=== PATIENT | male | born 1960 | race Caucasian/White ===

== ENCOUNTER → 2016-05-26 | Outpatient (REF) | payer MEDICARE, OTHER, MEDICAID ==
[~2016-05-26] MED LIST: /LAMO10TA PO; /QUET25TA PO; ABIL10TA PO; ACTO15TA6 PO; ASPI-85 PO; ATOR1TAB19 PO; BISO10TA6 PO; BISO5TAB5 PO; CLOP75TA2 PO; DYAZCA PO; GABA100C PO; GABA400C PO; GLIP5TAB2 PO; GLUC250C5 PO; GLUC5TAB3 PO; INVO100T PO; JANU100T PO; JANU25TA PO; LAMI25TA PO; LIPI10TA PO; LISI2.5T PO; LOSA50TA20 PO; MECL-68 PO; MECL25CH PO; METF-415 PO; MULTTAB4 PO; MYSO50TA PO; OMEG10006 PO; PROZ20CA11 PO; PROZ40CA PO; ROZE8TAB9 PO; SERT-138 PO; SPIRIVA INH; Spiriva Handihaler INH; TRAZ100T2 PO; VIBR100C PO; [UNRECOGNIZED DRUG - CODE] PO; spiriva PO
== END ==
LOC: M LAB REF 14:38
PROVIDERS: ATTEND Psychiatry & Neurology Psychiatry
DX: Z51.81 Encounter for therapeutic drug level monitoring (principal); Z79.899 Other long term (current) drug therapy

== ENCOUNTER → 2016-06-08 | Outpatient (REF) | payer MEDICARE, OTHER, MEDICAID | LOC: M LABNEURO 13:01 | PROVIDERS: ATTEND Psychiatry & Neurology Neurology | DX: G25.0 Essential tremor (principal) ==

== ENCOUNTER → 2016-08-26 | Outpatient (CLI) | payer MEDICARE, MEDICAID ==
[~2016-08-26] MED LIST changes: +E-Z-GAS II EFFERVESCENT PACKET (SODIUM BICARB./CITRIC ACID/SIMETHICONE) As Ordered ONE; +E-Z-HD 98% w/w 340GM SUSP BTL As Ordered ONE; +E-Z-PAQUE 96% w/w SUSP 176GM BTL As Ordered ONE; +ROZE8TAB16 PO; -ROZE8TAB9 PO
--- NOTE | 2016-08-26 15:33 | REP ---
ESOPHAGRAM, SINGLE CONTRAST: The procedure was performed under the direct supervision of Dr. Mazariegos. The images were reviewed with Dr. Mazariegos. A single view PA chest x-ray is submitted as a superintendent pressure film. There is no change compared to a previous chest x-ray performed on 09/28/2014. Liquid barium was administered in the prone oblique positions. The patient has Parkinson's disease and is unable to stand for the exam. During the oral and pharyngeal stages of deglutition there is penetration. Esophageal transport is prompt and efficient and there is no esophagitis, stricture, mucosal ring or hiatal hernia. Gastroesophageal reflux is not demonstrated on this examination. IMPRESSION: There is laryngeal penetration, otherwise, single contrast esophagram within normal limits. 1 minute and 17 seconds of fluoroscopy time was utilized for this procedure. Reviewed by SHLOMO Rodriguez 08/27/2016 04:11 PEdited and Signed by Rajinder Mazariegos MD 08/27/2016 04:51 P
== END ==
LOC: M RAD 09:18
PROVIDERS: ATTEND Psychiatry & Neurology Neurology
DX: R13.10 Dysphagia, unspecified (principal); F43.10 Post-traumatic stress disorder, unspecified; F33.2 Major depressive disorder, recurrent severe without psychotic features

== ENCOUNTER → 2016-10-28 | Outpatient (REF) | payer MEDICARE, MEDICAID ==
[~2016-10-28] MED LIST changes: -E-Z-GAS II EFFERVESCENT PACKET (SODIUM BICARB./CITRIC ACID/SIMETHICONE) As Ordered ONE; -E-Z-HD 98% w/w 340GM SUSP BTL As Ordered ONE; -E-Z-PAQUE 96% w/w SUSP 176GM BTL As Ordered ONE
[2016-10-28 13:28] LABS: MEAN CORPUSCULAR HEMOGLOBIN 31.7 pg (27.0-33.0); MEAN CORPUSCULAR HGB CONC 34.6 g/dl (32.0-36.5); MEAN CORPUSCULAR VOLUME 91.4 fl (80.0-96.0); RED CELL DISTRIBUTION WIDTH 12.6 % (11.5-14.5); WHITE BLOOD COUNT 10.8 K/mm3 (4.0-10.0)
[2016-10-28 16:09] LABS: ALBUMIN 4.1 GM/DL (3.2-5.2); ALBUMIN/GLOBULIN RATIO 1.28 (1.00-1.93); ALKALINE PHOSPHATASE 113 U/L (45-117); ALT/SGPT 19 U/L (12-78); ANION GAP 8 MEQ/L (8-16); AST/SGOT 5 U/L (15-37); BILIRUBIN,TOTAL 0.4 MG/DL (0.2-1.0); BLOOD UREA NITROGEN 12 MG/DL (7-18); CALCIUM LEVEL 9.2 MG/DL (8.5-10.1); CARBON DIOXIDE LEVEL 28 MEQ/L (21-32); CHLORIDE LEVEL 100 MEQ/L (98-107); CREATININE FOR GFR 0.88 MG/DL (0.70-1.30); FREE T4 0.99 NG/DL (0.76-1.46); GLOMERULAR FILTRATION RATE > 60.0 (>56); GLUCOSE, FASTING 368 MG/DL (70-105); SODIUM LEVEL 136 MEQ/L (136-145); TOTAL PROTEIN 7.3 GM/DL (6.4-8.2)
[2016-10-30 00:06] LABS: PHENOBARBITAL (PRIMIDONE) 5 ug/mL (15-40)
== END ==
LOC: M SFHCLERA 10-22 15:30 → M LAB REF 12:51
PROVIDERS: ATTEND Family Medicine
DX: E11.8 Type 2 diabetes mellitus with unspecified complications (principal); G20 Parkinson's disease; F43.10 Post-traumatic stress disorder, unspecified; F33.2 Major depressive disorder, recurrent severe without psychotic features

== ENCOUNTER → 2017-02-04 | Outpatient (REF) | payer MEDICARE, MEDICAID ==
[2017-02-04 18:21] LABS: ANION GAP 8 MEQ/L (8-16); BLOOD UREA NITROGEN 20 MG/DL (7-18); CALCIUM LEVEL 9.2 MG/DL (8.5-10.1); CARBON DIOXIDE LEVEL 28 MEQ/L (21-32); CHLORIDE LEVEL 103 MEQ/L (98-107); CREATININE FOR GFR 0.96 MG/DL (0.70-1.30); GLOMERULAR FILTRATION RATE > 60.0 (>56); SODIUM LEVEL 139 MEQ/L (136-145)
[2017-02-04 18:34] LABS: GLUCOSE, FASTING 408 MG/DL (70-105); POTASSIUM SERUM 5.2 MEQ/L (3.5-5.1)
== END ==
LOC: M SFHCLERA 14:14
PROVIDERS: ATTEND Family Medicine
DX: E11.8 Type 2 diabetes mellitus with unspecified complications (principal); F43.10 Post-traumatic stress disorder, unspecified
CPT/HCPCS: 80048; 83036; 90686; 90834; G0008; G0463

== ENCOUNTER → 2017-05-04 | Outpatient (REF) | payer MEDICARE, MEDICAID ==
[2017-05-04 21:11] LABS: ANION GAP 6 MEQ/L (8-16); BLOOD UREA NITROGEN 17 MG/DL (7-18); CALCIUM LEVEL 8.8 MG/DL (8.5-10.1); CARBON DIOXIDE LEVEL 27 MEQ/L (21-32); CHLORIDE LEVEL 108 MEQ/L (98-107); CREATININE FOR GFR 0.91 MG/DL (0.70-1.30); GLOMERULAR FILTRATION RATE > 60.0 (>56); GLUCOSE, FASTING 292 MG/DL (70-100); POTASSIUM SERUM 4.3 MEQ/L (3.5-5.1); SODIUM LEVEL 141 MEQ/L (136-145)
[2017-05-04 21:35] LABS: ESTIMATED AVERAGE GLUCOSE 212 MG/DL (60-110)
== END ==
LOC: M SFHCLERA 14:56
DX: E11.65 Type 2 diabetes mellitus with hyperglycemia (principal)
CPT/HCPCS: 83036

== ENCOUNTER → 2017-07-12 | Outpatient (REF) | payer MEDICARE, MEDICAID ==
[2017-07-12 13:33] LABS: BASO % 0.4 % (0.0-1.0); EOS # 0.1 10^3/uL (0.0-0.50); EOS % 1.1 % (0.0-3.0); HEMATOCRIT 45.4 % (42.0-52.0); HEMOGLOBIN 15.4 g/dl (13.5-17.5); IMMATURE GRANULOCYTE % 0.4 % (0-3.0); LYMPH # 2.1 10^3/uL (1.5-4.5); LYMPH % 20.7 % (24.0-44.0); MEAN CORPUSCULAR HEMOGLOBIN 30.5 pg (27.0-33.0); MEAN CORPUSCULAR HGB CONC 33.9 g/dl (32.0-36.5); MEAN CORPUSCULAR VOLUME 89.9 fl (80.0-96.0); MONO # 0.9 10^3/uL (0.0-0.8); NEUTROPHILS # 6.8 10^3/uL (1.8-7.7); NEUTROPHILS % 68.4 % (36.0-66.0); PLATELET COUNT, AUTOMATED 225 10^3/uL (150-450); RED BLOOD COUNT 5.05 10^6/uL (4.30-6.10); RED CELL DISTRIBUTION WIDTH 12.2 % (11.5-14.5); WHITE BLOOD COUNT 9.9 10^3/uL (4.0-10.0)
[2017-07-12 14:11] LABS: ALBUMIN 4.2 GM/DL (3.2-5.2); ALKALINE PHOSPHATASE 94 U/L (45-117); ALT/SGPT 15 U/L (12-78); ANION GAP 8 MEQ/L (8-16); AST/SGOT 8 U/L (7-37); BILIRUBIN,TOTAL 0.3 MG/DL (0.2-1.0); BLOOD UREA NITROGEN 16 MG/DL (7-18); CALCIUM LEVEL 8.9 MG/DL (8.5-10.1); CARBON DIOXIDE LEVEL 25 MEQ/L (21-32); CHLORIDE LEVEL 107 MEQ/L (98-107); CREATININE FOR GFR 0.82 MG/DL (0.70-1.30); GLOMERULAR FILTRATION RATE > 60.0 (>56); GLUCOSE, FASTING 149 MG/DL (70-100); POTASSIUM SERUM 4.1 MEQ/L (3.5-5.1); SODIUM LEVEL 140 MEQ/L (136-145); TOTAL PROTEIN 7.2 GM/DL (6.4-8.2)
[2017-07-14 10:17] LABS: LEVETIRACETAM (KEPPRA) None Detected ug/mL (10.0-40.0); PHENOBARBITAL (PRIMIDONE) None Detected ug/mL (15-40); PRIMIDONE, SERUM 2.5 ug/mL (5.0-12.0)
== END ==
LOC: M LABNEURO 10:44
DX: R56.9 Unspecified convulsions (principal); R25.1 Tremor, unspecified; R26.2 Difficulty in walking, not elsewhere classified
CPT/HCPCS: 80188

== ENCOUNTER → 2017-09-14 | Outpatient (REF) | payer MEDICARE, MEDICAID ==
[2017-09-14 10:39] LABS: BASO # 0.1 10^3/uL (0.0-0.2); BASO % 0.5 % (0.0-1.0); EOS # 0.2 10^3/uL (0.0-0.50); EOS % 1.6 % (0.0-3.0); HEMATOCRIT 45.4 % (42.0-52.0); HEMOGLOBIN 15.6 g/dl (13.5-17.5); IMMATURE GRANULOCYTE % 0.3 % (0-3.0); LYMPH # 3.3 10^3/uL (1.5-4.5); MEAN CORPUSCULAR HEMOGLOBIN 30.6 pg (27.0-33.0); MEAN CORPUSCULAR HGB CONC 34.4 g/dl (32.0-36.5); MONO # 0.8 10^3/uL (0.0-0.8); MONO % 8.6 % (0.0-5.0); NEUTROPHILS # 4.9 10^3/uL (1.8-7.7); PLATELET COUNT, AUTOMATED 207 10^3/uL (150-450); RED CELL DISTRIBUTION WIDTH 12.1 % (11.5-14.5); WHITE BLOOD COUNT 9.2 10^3/uL (4.0-10.0)
[2017-09-14 10:59] LABS: ALBUMIN 3.8 GM/DL (3.2-5.2); ALBUMIN/GLOBULIN RATIO 1.12 (1.00-1.93); ALKALINE PHOSPHATASE 86 U/L (45-117); ALT/SGPT 17 U/L (12-78); ANION GAP 8 MEQ/L (8-16); AST/SGOT 5 U/L (7-37); BILIRUBIN,TOTAL 0.3 MG/DL (0.2-1.0); BLOOD UREA NITROGEN 14 MG/DL (7-18); CALCIUM LEVEL 8.3 MG/DL (8.5-10.1); CARBON DIOXIDE LEVEL 27 MEQ/L (21-32); CHLORIDE LEVEL 104 MEQ/L (98-107); CHOLESTEROL LEVEL 163 MG/DL (<200); CHOLESTEROL RISK RATIO 4.527 (<5); CREATININE FOR GFR 0.85 MG/DL (0.70-1.30); GLOMERULAR FILTRATION RATE > 60.0 (>56); GLUCOSE, FASTING 145 MG/DL (70-100); HDL CHOLESTEROL 36 MG/DL (>40); LDL CHOLESTEROL 84.6 MG/DL (<100); NON-HDL-C 127 MG/DL; POTASSIUM SERUM 4.3 MEQ/L (3.5-5.1); SODIUM LEVEL 139 MEQ/L (136-145); TOTAL PROTEIN 7.2 GM/DL (6.4-8.2); TRIGLYCERIDES LEVEL 212 MG/DL (<150)
[2017-09-14 11:15] LABS: ESTIMATED AVERAGE GLUCOSE 166 MG/DL (60-110); HEMOGLOBIN A1c 7.4 %
== END ==
LOC: M LAB REF 10:28
DX: E11.8 Type 2 diabetes mellitus with unspecified complications (principal)
CPT/HCPCS: 84443

== ENCOUNTER → 2017-09-22 | Outpatient (REF) | payer MEDICARE, MEDICAID ==
[2017-09-22 11:16] LABS: CREATININE, URINE 63.7 MG/DL; MALB URINE SIEMENS 37.4 MG/L; MAU/CREAT RATIO 58.7 MCG/MG (0.0-30.0)
== END ==
LOC: M LAB REF 09:20
DX: E11.8 Type 2 diabetes mellitus with unspecified complications (principal)
CPT/HCPCS: 82043

== ENCOUNTER → 2017-11-19 | Outpatient (CLI) | payer MEDICARE, MEDICAID | LOC: M PLARAD 13:45 | DX: I73.9 Peripheral vascular disease, unspecified (principal); I63.8 Other cerebral infarction; G23.8 Other specified degenerative diseases of basal ganglia; G21.8 Other secondary parkinsonism; R26.2 Difficulty in walking, not elsewhere classified | CPT/HCPCS: 70551 ==

== ENCOUNTER → 2017-12-21 | Outpatient (REF) | payer MEDICARE, MEDICAID ==
[2017-12-21 18:52] LABS: ESTIMATED AVERAGE GLUCOSE 160 MG/DL (60-110); HEMOGLOBIN A1c 7.2 %
== END ==
LOC: M LAB REF 17:45
DX: E11.8 Type 2 diabetes mellitus with unspecified complications (principal)
CPT/HCPCS: 83036

== ENCOUNTER → 2017-12-22 | Outpatient (REF) | payer MEDICARE, MEDICAID ==
[2017-12-22 12:49] LABS: CREATININE, URINE 74.5 MG/DL
[2017-12-22 13:09] LABS: MAU/CREAT RATIO 139.6 MCG/MG (0.0-30.0)
== END ==
LOC: M SFHCLERA 11:30
DX: E11.8 Type 2 diabetes mellitus with unspecified complications (principal)
CPT/HCPCS: 82043

== ENCOUNTER → 2018-05-17 | Outpatient (REF) | payer MEDICARE, MEDICAID | LOC: M SFHCLERA 15:24 | PROVIDERS: ATTEND Family Medicine | DX: E11.8 Type 2 diabetes mellitus with unspecified complications (principal); Z53.8 Procedure and treatment not carried out for other reasons ==

== ENCOUNTER → 2018-05-31 | Outpatient (REF) | payer MEDICARE, MEDICAID ==
[2018-05-31 14:59] LABS: HEMOGLOBIN A1c 8.4 %
== END ==
LOC: M LAB REF 14:08
PROVIDERS: ATTEND Family Medicine
DX: E11.8 Type 2 diabetes mellitus with unspecified complications (principal)

== ENCOUNTER → 2018-06-03 | Outpatient (REF) | payer MEDICARE, MEDICAID ==
[2018-06-03 17:15] LABS: CREATININE, URINE 34.5 MG/DL; MALB URINE SIEMENS 31.2 MG/L; MAU/CREAT RATIO 90.4 MCG/MG (0.0-30.0)
== END ==
LOC: M LAB REF 16:23
PROVIDERS: ATTEND Family Medicine
DX: E11.8 Type 2 diabetes mellitus with unspecified complications (principal)

== ENCOUNTER → 2018-06-14 | Outpatient (REF) | payer MEDICARE, MEDICAID ==
[2018-06-14 15:12] LABS: ALBUMIN 3.6 GM/DL (3.2-5.2); ALT/SGPT 16 U/L (12-78); BILIRUBIN,DIRECT < 0.1 MG/DL (0.0-0.2); BILIRUBIN,TOTAL 0.2 MG/DL (0.2-1.0); TOTAL PROTEIN 6.6 GM/DL (6.4-8.2); VALPROIC ACID (DEPAKOTE) 17.3 UG/ML (50.0-100.0)
== END ==
LOC: M LAB REF 14:14
PROVIDERS: ATTEND Psychiatry & Neurology Psychiatry
DX: Z51.81 Encounter for therapeutic drug level monitoring (principal)

== ENCOUNTER → 2018-09-19 | Outpatient (REF) | payer MEDICARE ==
[~2018-09-19] MED LIST changes: -/LAMO10TA PO; -/QUET25TA PO; +LAMI1TAB7 PO; +SERO1TAB3 PO
[2018-09-19 12:12] LABS: HEMOGLOBIN A1c 8.4 %
[2018-09-19 12:21] LABS: ALBUMIN 3.9 GM/DL (3.2-5.2); ALT/SGPT 16 U/L (12-78); BILIRUBIN,TOTAL 0.3 MG/DL (0.2-1.0); BLOOD UREA NITROGEN 18 MG/DL (7-18); CALCIUM LEVEL 9.8 MG/DL (8.5-10.1); CARBON DIOXIDE LEVEL 27 MEQ/L (21-32); CHLORIDE LEVEL 103 MEQ/L (98-107); CHOLESTEROL LEVEL 223 MG/DL (<200); CHOLESTEROL RISK RATIO 6.194 (<5); CREATININE FOR GFR 0.93 MG/DL (0.70-1.30); GLOMERULAR FILTRATION RATE > 60.0 (>56); GLUCOSE, FASTING 233 MG/DL (70-100); HDL CHOLESTEROL 36 MG/DL (>40); LDL CHOLESTEROL 140 MG/DL (<100); NON-HDL-C 187 MG/DL; POTASSIUM SERUM 4.4 MEQ/L (3.5-5.1); SODIUM LEVEL 136 MEQ/L (136-145); TOTAL PROTEIN 7.7 GM/DL (6.4-8.2); TRIGLYCERIDES LEVEL 235 MG/DL (<150)
== END ==
LOC: M SFHCLERA 11:12
PROVIDERS: ATTEND Family Medicine
DX: E78.5 Hyperlipidemia, unspecified (principal); E11.8 Type 2 diabetes mellitus with unspecified complications

== ENCOUNTER → 2019-03-13 | Outpatient (REF) | payer MEDICARE, MEDICAID ==
[2019-03-13 18:07] LABS: BLOOD UREA NITROGEN 20 MG/DL (7-18); CALCIUM LEVEL 9.3 MG/DL (8.5-10.1); CARBON DIOXIDE LEVEL 26 MEQ/L (21-32); CHLORIDE LEVEL 106 MEQ/L (98-107); CHOLESTEROL LEVEL 181 MG/DL (<200); CHOLESTEROL RISK RATIO 4.022 (<5); CREATININE FOR GFR 0.83 MG/DL (0.70-1.30); GLOMERULAR FILTRATION RATE > 60.0 (>56); GLUCOSE, FASTING 146 MG/DL (70-100); HDL CHOLESTEROL 45 MG/DL (>40); LDL CHOLESTEROL 105 MG/DL (<100); NON-HDL-C 136 MG/DL; POTASSIUM SERUM 4.3 MEQ/L (3.5-5.1); SODIUM LEVEL 139 MEQ/L (136-145); TRIGLYCERIDES LEVEL 157 MG/DL (<150)
[2019-03-13 20:13] LABS: HEMOGLOBIN A1c 7.3 %
== END ==
LOC: M SFHCLERA 11:55
PROVIDERS: ATTEND Family Medicine
DX: E11.8 Type 2 diabetes mellitus with unspecified complications (principal); E78.5 Hyperlipidemia, unspecified; Z23 Encounter for immunization
CPT/HCPCS: 80048; 80061; 83036; 90682; G0008; G0463

== ENCOUNTER → 2019-06-01 | Outpatient (REF) | payer MEDICARE, MEDICAID ==
[2019-06-01 19:39] LABS: CHOLESTEROL RISK RATIO 4.05 (<5)
[2019-06-01 19:54] LABS: HEMOGLOBIN A1c 7.9 %
== END ==
LOC: M SFHCLERA 16:37
PROVIDERS: ATTEND Family Medicine
DX: E11.8 Type 2 diabetes mellitus with unspecified complications (principal); E78.5 Hyperlipidemia, unspecified
CPT/HCPCS: 80061; 83036; G0463

== ENCOUNTER → 2019-06-04 | Outpatient (REF) | payer MEDICARE, MEDICAID | LOC: M LAB REF 10:28 | PROVIDERS: ATTEND Psychiatry & Neurology Psychiatry | DX: Z51.81 Encounter for therapeutic drug level monitoring (principal) ==

== ENCOUNTER → 2019-12-05 | Outpatient (REF) | payer MEDICARE, MEDICAID ==
[2019-12-05 15:46] LABS: BASO # 0.1 10^3/uL (0.0-0.2); BASO % 0.8 % (0.0-1.0); EOS # 0.3 10^3/uL (0.0-0.5); EOS % 2.7 % (0.0-3.0); HEMATOCRIT 48.8 % (42.0-52.0); HEMOGLOBIN 16.1 g/dl (13.5-17.5); LYMPH # 2.9 10^3/uL (1.5-5.0); LYMPH % 27.8 % (24.0-44.0); MEAN CORPUSCULAR HEMOGLOBIN 30.7 pg (27.0-33.0); MONO # 0.8 10^3/uL (0.0-0.8); MONO % 7.9 % (0.0-5.0); NEUTROPHILS # 6.3 10^3/uL (1.5-8.5); NEUTROPHILS % 59.9 % (36.0-66.0); PLATELET COUNT, AUTOMATED 272 10^3/uL (150-450); RED BLOOD COUNT 5.25 10^6/uL (4.30-6.10); WHITE BLOOD COUNT 10.6 10^3/uL (4.0-10.0)
[2019-12-05 16:07] LABS: HEMOGLOBIN A1c 6.7 %
[2019-12-05 16:17] LABS: BLOOD UREA NITROGEN 26 MG/DL (7-18); CALCIUM LEVEL 9.5 MG/DL (8.5-10.1); CARBON DIOXIDE LEVEL 26 MEQ/L (21-32); CHLORIDE LEVEL 103 MEQ/L (98-107); CREATININE FOR GFR 0.81 MG/DL (0.70-1.30); GLOMERULAR FILTRATION RATE > 60.0 (>56); GLUCOSE, FASTING 112 MG/DL (70-100); POTASSIUM SERUM 4.1 MEQ/L (3.5-5.1); SODIUM LEVEL 136 MEQ/L (136-145)
== END ==
LOC: M LAB REF 14:53
PROVIDERS: ATTEND Family Medicine
DX: E11.9 Type 2 diabetes mellitus without complications (principal)

== ENCOUNTER → 2019-12-07 | Outpatient (REF) | payer MEDICARE, MEDICAID ==
[2019-12-07 12:08] LABS: CREATININE, URINE 72.7 MG/DL; MALB URINE SIEMENS 49.8 MG/L; MAU/CREAT RATIO 68.5 MCG/MG (0.0-30.0)
== END ==
LOC: M LAB REF 10:35
PROVIDERS: ATTEND Family Medicine
DX: E11.9 Type 2 diabetes mellitus without complications (principal)

== ENCOUNTER → 2020-07-12 | Outpatient (REF) | payer MEDICARE, MEDICAID ==
[~2020-07-12] MED LIST changes: +ATOR40TA75; +DIVA500T94; +ECOT81TA5 PO; +GABA-845; +GNP650TA8 PO; +JARD1TAB3; +LAMO150T3; +LAMO25TA4; +LEVE500T5 PO; +LIDO1CRE2 EX; +LISI2.5T2; +MELA5CAP2 PO; +METF10004; +NAPR-885; +OMEG1CAP85; +OSTE5TAB PO; +PRAZ1CAP PO; +PRAZ2CAP; +PREG50CA2; +PRIM50TA6 PO; +SPIR1CAP; +TAB-TAB3; +TRAZ-252; +TRIH2TAB3 PO; +TRUL0.5I
[2020-07-12 11:39] LABS: BASO # 0.1 10^3/uL (0.0-0.2); BASO % 0.6 % (0.0-1.0); EOS # 0.2 10^3/uL (0.0-0.5); EOS % 1.7 % (0.0-3.0); HEMATOCRIT 51.7 % (42.0-52.0); LYMPH # 3.2 10^3/uL (1.5-5.0); LYMPH % 28.2 % (24.0-44.0); MEAN CORPUSCULAR HEMOGLOBIN 29.5 pg (27.0-33.0); MEAN CORPUSCULAR HGB CONC 32.9 g/dl (32.0-36.5); MEAN CORPUSCULAR VOLUME 89.6 fl (80.0-96.0); MONO # 0.7 10^3/uL (0.0-0.8); MONO % 6.4 % (2.0-8.0); NEUTROPHILS % 62.7 % (36.0-66.0); PLATELET COUNT, AUTOMATED 289 10^3/uL (150-450); RED BLOOD COUNT 5.77 10^6/uL (4.30-6.10); WHITE BLOOD COUNT 11.2 10^3/uL (4.0-10.0)
[2020-07-12 12:14] LABS: BLOOD UREA NITROGEN 18 MG/DL (7-18); CALCIUM LEVEL 10.1 MG/DL (8.5-10.1); CARBON DIOXIDE LEVEL 29 MEQ/L (21-32); CHLORIDE LEVEL 102 MEQ/L (98-107); CHOLESTEROL LEVEL 312 MG/DL (<200); CREATININE FOR GFR 0.86 MG/DL (0.70-1.30); GLOMERULAR FILTRATION RATE > 60.0 (>56); GLUCOSE, FASTING 215 MG/DL (70-100); HDL CHOLESTEROL 39 MG/DL (>40); LDL CHOLESTEROL 202 MG/DL (<100); NON-HDL-C 273 MG/DL; POTASSIUM SERUM 4.7 MEQ/L (3.5-5.1); SODIUM LEVEL 138 MEQ/L (136-145); TRIGLYCERIDES LEVEL 357 MG/DL (<150)
[2020-07-12 12:18] LABS: CREATININE, URINE 39.5 MG/DL; MAU/CREAT RATIO 402.5 MCG/MG (0.0-30.0)
== END ==
LOC: M SFHCLERA 09:50
PROVIDERS: ATTEND Family Medicine
DX: Z01.818 Encounter for other preprocedural examination (principal); E11.8 Type 2 diabetes mellitus with unspecified complications; Z13.220 Encounter for screening for lipoid disorders

== ENCOUNTER → 2020-07-15 | Outpatient (CLI) | payer MEDICARE, MEDICAID | LOC: M LABSMTC 13:30 | PROVIDERS: ATTEND Anesthesiology | DX: Z01.818 Encounter for other preprocedural examination (principal); Z20.822 Contact with and (suspected) exposure to COVID-19 ==

== ENCOUNTER 2020-07-18 07:58 | Day surgery (SDC) | payer MEDICARE, MEDICAID ==
[~2020-07-18] VITALS: Ht 165.1 cm; Wt 84.8 kg
[~2020-07-18 07:58] MED LIST changes: +NS 1,000 ML IV ONE
[2020-07-18] MEDS ORDERED: LIDOCAINE 2% 100MG/5ML SDV (FOR ANES.) As Ordered ONE (10:34)
[2020-07-18] MEDS ORDERED: propofoL 200 MG/20 ML VIAL As Ordered ONE ×2 (10:34→10:50)
--- NOTE | 2020-07-18 11:00 | ROOR ---
Patient Name: Kyaw Asif Procedure Date: 07/18/2020 10:26 AM Date of : 1960 Age: 59 Room: [facility] Gender: Male Note Status: Finalized Procedure: Colonoscopy Indications: Screening for colorectal malignant neoplasm Providers: Neno GOLDBERG MD Referring MD: Nilton Causey DO Requesting Provider: Medicines: Monitored Anesthesia Care Complications: No immediate complications. Procedure: Pre-Anesthesia Assessment: - The heart rate, respiratory rate, oxygen saturations, blood pressure, adequacy of pulmonary ventilation, and response to care were monitored throughout the procedure. The Colonoscope was introduced through the anus and advanced to the terminal ileum, with identification of the appendiceal orifice and IC valve. The colonoscopy was performed without difficulty. The patient tolerated the procedure well. The quality of the bowel preparation was adequate and fair. Findings: The perianal and digital rectal examinations were normal. Three sessile polyps were found in the anus, descending colon and cecum. The polyps were 4 to 6 mm in size. These polyps were removed with a cold snare. Resection and retrieval were complete. Mild sigmoid diverticulosis and small internal hemorrhoids. The colon (entire examined portion) was redundant. Retroflexion in the right colon was performed. The exam was otherwise without abnormality on direct and retroflexion views. Impression: - Preparation of the colon was fair. - Three 4 to 6 mm polyps at the anus, in the descending colon and in the cecum, removed with a cold snare. Resected and retrieved. - Mild sigmoid diverticulosis and small internal hemorrhoids. - Redundant colon. - The examination was otherwise normal on direct and retroflexion views. Recommendation: - Repeat colonoscopy in 3 years for surveillance. 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 All rights reserved. The codes documented in this report are preliminary and upon drug safety assistant review may be revised to meet current compliance requirements. eNno Goldberg MD Neno GOLDBERG MD 07/18/2020 11:00:14 AM Electronically signed by Neno GOLDBERG MD Number of Addenda: 0 Note Initiated On: 07/18/2020 10:26 AM Estimated Blood Loss: Estimated blood loss: none.
[2020-07-18 11:20] VITALS: BP 120/73
== END 2020-07-18 11:27 | disposition home or self-care (01) ==
LOC: M OPP 07:58
PROVIDERS: ATTEND Internal Medicine Gastroenterology
DX: Z12.11 Encounter for screening for malignant neoplasm of colon (principal); K62.0 Anal polyp; K63.5 Polyp of colon; Q43.5 Ectopic anus; K57.30 Diverticulosis of large intestine without perforation or abscess without bleeding; K64.8 Other hemorrhoids; J44.9 Chronic obstructive pulmonary disease, unspecified; E11.9 Type 2 diabetes mellitus without complications; G20 Parkinson's disease; Z79.82 Long term (current) use of aspirin; Z79.84 Long term (current) use of oral hypoglycemic drugs; Z79.899 Other long term (current) drug therapy; Z88.0 Allergy status to penicillin; Z88.1 Allergy status to other antibiotic agents; Z91.040 Latex allergy status

== ENCOUNTER → 2020-09-24 | Outpatient (REF) | payer MEDICARE, MEDICAID ==
[~2020-09-24] MED LIST changes: +GABA-283; -GABA-845; -NS 1,000 ML IV ONE
== END ==
LOC: M LAB REF 11:30
PROVIDERS: ATTEND Psychiatry & Neurology Psychiatry
DX: F43.10 Post-traumatic stress disorder, unspecified (principal); F33.2 Major depressive disorder, recurrent severe without psychotic features; G31.84 Mild cognitive impairment of uncertain or unknown etiology

== ENCOUNTER → 2021-01-29 | Outpatient (REF) | payer MEDICARE, MEDICAID ==
[~2021-01-29] MED LIST changes: -LISI2.5T2; +LISI2.5T9
[2021-01-29 13:40] LABS: BASO % 0.3 % (0.0-1.0); EOS # 0.1 10^3/uL (0.0-0.5); EOS % 1.1 % (0.0-3.0); HEMATOCRIT 44.3 % (42.0-52.0); HEMOGLOBIN 14.6 g/dl (13.5-17.5); LYMPH # 2.2 10^3/uL (1.5-5.0); LYMPH % 20.1 % (24.0-44.0); MEAN CORPUSCULAR HEMOGLOBIN 29.3 pg (27.0-33.0); MEAN CORPUSCULAR VOLUME 88.8 fl (80.0-96.0); MONO # 0.8 10^3/uL (0.0-0.8); MONO % 7.6 % (2.0-8.0); NEUTROPHILS # 7.5 10^3/uL (1.5-8.5); NEUTROPHILS % 70.6 % (36.0-66.0); PLATELET COUNT, AUTOMATED 223 10^3/uL (150-450); RED BLOOD COUNT 4.99 10^6/uL (4.30-6.10); WHITE BLOOD COUNT 10.7 10^3/uL (4.0-10.0)
== END ==
LOC: M LAB REF 13:25
PROVIDERS: ATTEND Psychiatry & Neurology Psychiatry
DX: Z79.899 Other long term (current) drug therapy (principal)

== ENCOUNTER 2021-04-11 17:07 | Inpatient (IN) | payer MEDICAID, MEDICARE ==
[~2021-04-11] VITALS: Ht 165.1 cm; Wt 92.6 kg
[~2021-04-11 17:07] MED LIST changes: -ATOR40TA75; +ATOR40TA75 PO; -DIVA500T94; +DIVA500T94 PO; -GABA-283; +GABA-283 PO; -JARD1TAB3; +JARD1TAB3 PO; -LAMO150T3; +LAMO150T3 PO; -LAMO25TA4; +LAMO25TA4 PO; -LISI2.5T9; +LISI2.5T9 PO; -METF10004; +METF10004 PO; -NAPR-885; +NAPR-885 PO; -OMEG1CAP85; +OMEG1CAP85 PO; -PREG50CA2; +PREG50CA2 PO; -SPIR1CAP; +SPIR1CAP PO; -TAB-TAB3; +TAB-TAB3 PO; -TRAZ-252; +TRAZ-252 PO; -TRUL0.5I; +TRUL0.5I INJ
[2021-04-11] MEDS ORDERED: MORPHINE 2 MG/ML 1ML VIAL (J2270) IV ONE (17:45)
[2021-04-11 18:09] LABS: ALBUMIN 3.8 GM/DL (3.2-5.2); ALT/SGPT 20 U/L (12-78); BILIRUBIN,TOTAL 0.1 MG/DL (0.2-1.0); BLOOD UREA NITROGEN 16 MG/DL (7-18); CALCIUM LEVEL 9.4 MG/DL (8.5-10.1); CARBON DIOXIDE LEVEL 28 MEQ/L (21-32); CHLORIDE LEVEL 104 MEQ/L (98-107); CREATININE FOR GFR 0.94 MG/DL (0.70-1.30); GLOMERULAR FILTRATION RATE > 60.0 (>56); GLUCOSE, FASTING 314 MG/DL (70-100); POTASSIUM SERUM 4.9 MEQ/L (3.5-5.1); SODIUM LEVEL 138 MEQ/L (136-145); TOTAL PROTEIN 7.2 GM/DL (6.4-8.2); VALPROIC ACID (DEPAKOTE) < 3.0 UG/ML (50.0-100.0)
[2021-04-11 18:13] LABS: BASO # 0.1 10^3/uL (0.0-0.2); BASO % 0.6 % (0.0-1.0); EOS # 0.1 10^3/uL (0.0-0.5); EOS % 1.2 % (0.0-3.0); HEMATOCRIT 48.7 % (42.0-52.0); HEMOGLOBIN 16.2 g/dl (13.5-17.5); LYMPH # 2.2 10^3/uL (1.5-5.0); LYMPH % 21.7 % (24.0-44.0); MEAN CORPUSCULAR HEMOGLOBIN 29.2 pg (27.0-33.0); MEAN CORPUSCULAR HGB CONC 33.3 g/dl (32.0-36.5); MEAN CORPUSCULAR VOLUME 87.7 fl (80.0-96.0); MONO # 0.9 10^3/uL (0.0-0.8); MONO % 8.7 % (2.0-8.0); NEUTROPHILS # 6.7 10^3/uL (1.5-8.5); NEUTROPHILS % 67.3 % (36.0-66.0); PLATELET COUNT, AUTOMATED 256 10^3/uL (150-450); RED BLOOD COUNT 5.55 10^6/uL (4.30-6.10); WHITE BLOOD COUNT 9.9 10^3/uL (4.0-10.0)
[2021-04-11] MEDS ORDERED: MORPHINE 4 MG/ML 1ML VIAL/SYRINGE (J2270) IV ONE (19:10)
[2021-04-11] MEDS ORDERED: MORPHINE 4 MG/ML 1ML VIAL/SYRINGE (J2270) IV PRN (20:55)
[2021-04-11] MEDS ORDERED: atenoloL 50 MG TAB PO ONE (20:55)
[2021-04-11] MEDS ORDERED: NS 1,000 ML IV SCH (20:55)
[2021-04-11] MEDS ORDERED: GLUCAGON INJ 1MG VIAL SC PRN (21:00)
[2021-04-11] MEDS ORDERED: DEXTROSE 50% 50 ML SYRINGE IV PRN (21:00)
[2021-04-11] MEDS ORDERED: GLUCOSE 4GM CHEW TABLET PO PRN (21:00)
[2021-04-11] MEDS ORDERED: MED REC COMMENT (21:26)
[2021-04-11] MEDS ORDERED: HOME MED LIST COMPLETE! XX SCH (21:30)
[2021-04-11 21:49] LABS: INR 0.9; PROTHROMBIN TIME 12.5 SECONDS (12.7-14.5)
[2021-04-11 21:50] LABS: PARTIAL THROMBOPLASTIN TIME 27.4 SECONDS (25.9-37.0)
[2021-04-11 22:02] LABS: CK-MB VALUE MASS 2.4 NG/ML (<3.6); MB/CK RELATIVE INDEX 0.91 (< OR =4)
[2021-04-11 22:22] VITALS: BP 171/104
[2021-04-11] MEDS ORDERED: ONDANSETRON 4MG/2ML VIAL IV PRN (22:35)
[2021-04-12] VITALS (15 sets, daily range): BP systolic 86–166; BP diastolic 51–102
[2021-04-12] MEDS: HumaLOG INSULIN (NovoLOG) PER UNIT SC SCH ×5 (01:17→23:54)
[2021-04-12] MEDS: D5W/0.45% SODIUM CHLORIDE 1,000 ML IV SCH ×5 (01:17→23:55)
[2021-04-12] MEDS: KETOROLAC 30 MG/ML 1ML VIAL IV PRN ×2 (06:23→13:21)
[2021-04-12 07:33] LABS: HEMATOCRIT 42.2 % (42.0-52.0); HEMOGLOBIN 14.4 g/dl (13.5-17.5); MEAN CORPUSCULAR HEMOGLOBIN 29.7 pg (27.0-33.0); MEAN CORPUSCULAR HGB CONC 34.1 g/dl (32.0-36.5); PLATELET COUNT, AUTOMATED 273 10^3/uL (150-450); RED BLOOD COUNT 4.85 10^6/uL (4.30-6.10); WHITE BLOOD COUNT 12.2 10^3/uL (4.0-10.0)
[2021-04-12] MEDS ORDERED: HYDROMORPHONE HCL 0.5 MG/ 0.5 ML SYRINGE (J1170 PER 1) IV ONE (08:00)
[2021-04-12] MEDS ORDERED: KETOROLAC 30 MG/ML 1ML VIAL IV ONE (08:00)
[2021-04-12] MEDS ORDERED: atenoloL 25 MG TAB PO ONE (08:00)
[2021-04-12 08:09] LABS: BLOOD UREA NITROGEN 17 MG/DL (7-18); CALCIUM LEVEL 8.2 MG/DL (8.5-10.1); CARBON DIOXIDE LEVEL 21 MEQ/L (21-32); CHLORIDE LEVEL 107 MEQ/L (98-107); CREATININE FOR GFR 0.69 MG/DL (0.70-1.30); GLOMERULAR FILTRATION RATE > 60.0 (>56); GLUCOSE, FASTING 305 MG/DL (70-100); MAGNESIUM LEVEL 2.1 MG/DL (1.8-2.4); POTASSIUM SERUM 3.9 MEQ/L (3.5-5.1); SODIUM LEVEL 136 MEQ/L (136-145)
[2021-04-12] MEDS ORDERED: NITROGLYCERIN 2% OINT 1 GM *U/D* PKT TOP SCH (09:00)
[2021-04-12] MEDS ORDERED: fentaNYL 250 MCG/5 ML INJECTION (J3010) As Ordered ONE (17:12)
[2021-04-12] MEDS ORDERED: propofoL 200 MG/20 ML VIAL As Ordered ONE (17:12)
[2021-04-12] MEDS ORDERED: LIDOCAINE 2% 100MG/5ML SDV (FOR ANES.) As Ordered ONE (17:12)
[2021-04-12] MEDS ORDERED: ROCURONIUM BROMIDE 50 MG/5 ML VIAL As Ordered ONE (17:12)
[2021-04-12] MEDS ORDERED: TRANEXAMIC ACID 100 MG/ML 10ML VIAL As Ordered ONE (17:51)
[2021-04-12] MEDS ORDERED: MIDAZOLAM INJ 2MG/2ML VIAL (J2250 PER 1MG) As Ordered ONE (18:07)
[2021-04-12] MEDS ORDERED: ceFAZolin 2 GM/D5W 50 ML IV BAG (J0690 PER 500MG) As Ordered ONE (19:05)
[2021-04-12] MEDS ORDERED: PHENYLephrine 500MCG 5ML (100MCG/ML) SYRINGE As Ordered ONE (20:05)
[2021-04-12] MEDS ORDERED: ePHEDrine SULFATE 25 MG/5 ML(5MG/ML) SYRINGE As Ordered ONE (20:05)
[2021-04-12] MEDS ORDERED: SUGAMMADEX SODIUM 500 MG/5 ML VIAL (BRIDION) As Ordered ONE (20:05)
[2021-04-12] MEDS ORDERED: dexameTHASONE 4 MG/ML 1ML VIAL (J1100 PER 1MG) As Ordered ONE (20:07)
[2021-04-12] MEDS ORDERED: ONDANSETRON 4MG/2ML VIAL As Ordered ONE (20:07)
[2021-04-12] MEDS ORDERED: KETOROLAC 60MG 2ML VIAL As Ordered ONE (20:07)
[2021-04-12] MEDS ORDERED: PHENYLEPHRINE 10MG/ML 1ML VIAL (J2370 PER 1) As Ordered ONE ×2 (20:13→22:22)
[2021-04-12] MEDS ORDERED: HYDROmorphone HCL 2MG/ML 1ML VIAL As Ordered ONE (20:58)
[2021-04-12] MEDS ORDERED: ONDANSETRON 4MG/2ML VIAL IV PRN (21:35)
[2021-04-12] MEDS ORDERED: fentaNYL 100 MCG/2 ML INJECTION (J3010) IV PRN (21:35)
[2021-04-12] MEDS ORDERED: LR 1,000 ML IV SCH ×2 (21:35→22:40)
[2021-04-12] MEDS ORDERED: oxyCODONE 5MG TAB PO PRN (21:35)
[2021-04-12] MEDS ORDERED: HYDROMORPHONE HCL 0.5 MG/ 0.5 ML SYRINGE (J1170 PER 1) IV PRN (21:35)
[2021-04-12] MEDS: PHENYLephrine 500MCG 5ML (100MCG/ML) SYRINGE IV PRN ×10 (21:50→22:55)
[2021-04-12 22:25] LABS: HEMATOCRIT 32.4 % (42.0-52.0)
[2021-04-12 22:28] LABS: HEMOGLOBIN 10.6 g/dl (13.5-17.5)
[2021-04-12] MEDS ORDERED: PHENYLEPHRINE HCL INJ 10 MG in D5W 99 ML IV SCH (23:10)
[2021-04-13] VITALS (45 sets, daily range): BP systolic 81–115; BP diastolic 50–70
[2021-04-13] MEDS: HumaLOG INSULIN (NovoLOG) PER UNIT SC SCH ×4 (06:09→20:51)
[2021-04-13 07:11] LABS: HEMATOCRIT 25.9 % (42.0-52.0); MEAN CORPUSCULAR HEMOGLOBIN 29.8 pg (27.0-33.0); MEAN CORPUSCULAR HGB CONC 33.2 g/dl (32.0-36.5); MEAN CORPUSCULAR VOLUME 89.6 fl (80.0-96.0); PLATELET COUNT, AUTOMATED 209 10^3/uL (150-450); RED BLOOD COUNT 2.89 10^6/uL (4.30-6.10); WHITE BLOOD COUNT 12.3 10^3/uL (4.0-10.0)
[2021-04-13 07:13] LABS: HEMOGLOBIN 8.6 g/dl (13.5-17.5)
[2021-04-13 07:26] LABS: BLOOD UREA NITROGEN 22 MG/DL (7-18); CALCIUM LEVEL 7.4 MG/DL (8.5-10.1); CARBON DIOXIDE LEVEL 25 MEQ/L (21-32); CHLORIDE LEVEL 108 MEQ/L (98-107); CREATININE FOR GFR 0.76 MG/DL (0.70-1.30); GLOMERULAR FILTRATION RATE > 60.0 (>56); GLUCOSE, FASTING 324 MG/DL (70-100); POTASSIUM SERUM 4.3 MEQ/L (3.5-5.1); SODIUM LEVEL 139 MEQ/L (136-145)
[2021-04-13 08:41] LABS: NT-PRO BNP 1175 PG/ML (<125)
[2021-04-13] MEDS: MIDODRINE 5 MG TAB PO SCH ×3 (08:55→16:31)
[2021-04-13] MEDS ORDERED: NS 1,000 ML IV ONE (12:45)
[2021-04-13 13:16] LABS: THYROID STIMULATING HORMONE 0.411 uIU/ML (0.358-3.740)
[2021-04-13 13:54] LABS: HEMATOCRIT 24.6 % (42.0-52.0); HEMOGLOBIN 8.1 g/dl (13.5-17.5)
[2021-04-13] MEDS: ACETAMINOPHEN TAB 650MG DOSE (2X325MG) PO PRN ×2 (16:31→20:49)
[2021-04-13] MEDS ORDERED: traZODone 50 MG TAB PO SCH (21:00)
[2021-04-13] MEDS: PRAZOSIN 1 MG CAP PO SCH (21:00)
[2021-04-13] MEDS: KETOROLAC 30 MG/ML 1ML VIAL IV PRN (23:02)
[2021-04-13] MEDS ORDERED: PILL CUTTER 1 EACH XX PRN (23:05)
[2021-04-13] MEDS: DIVALPROEX 500 MG TAB PO SCH (23:54)
[2021-04-13] MEDS: GABAPENTIN 400MG CAP PO SCH (23:55)
[2021-04-13] MEDS: PRIMIDONE 50MG TAB PO SCH (23:55)
[2021-04-13] MEDS: PREGABALIN 50 MG CAP (LYRICA) PO SCH (23:56)
[2021-04-13] MEDS: TRIHEXYPHENIDYL 2 MG TAB PO SCH (23:58)
[2021-04-14] VITALS (15 sets, daily range): BP systolic 76–106; BP diastolic 50–66
[2021-04-14] MEDS: ACETAMINOPHEN TAB 650MG DOSE (2X325MG) PO PRN (02:22)
[2021-04-14] MEDS: COSYNTROPIN 0.25 MG/ML VIAL (J0834 PER 0.25MG) IV ONE ×2 (04:16→04:36)
[2021-04-14 04:25] LABS: MEAN CORPUSCULAR HGB CONC 34.1 g/dl (32.0-36.5); MEAN CORPUSCULAR VOLUME 87.8 fl (80.0-96.0); PLATELET COUNT, AUTOMATED 164 10^3/uL (150-450); RED BLOOD COUNT 2.37 10^6/uL (4.30-6.10); WHITE BLOOD COUNT 9.9 10^3/uL (4.0-10.0)
[2021-04-14 04:28] LABS: HEMATOCRIT 20.8 % (42.0-52.0); HEMOGLOBIN 7.1 g/dl (13.5-17.5)
[2021-04-14 04:51] LABS: BLOOD UREA NITROGEN 29 MG/DL (7-18); CALCIUM LEVEL 7.3 MG/DL (8.5-10.1); CARBON DIOXIDE LEVEL 24 MEQ/L (21-32); CHLORIDE LEVEL 108 MEQ/L (98-107); CREATININE FOR GFR 0.88 MG/DL (0.70-1.30); GLOMERULAR FILTRATION RATE > 60.0 (>56); GLUCOSE, FASTING 339 MG/DL (70-100); POTASSIUM SERUM 3.9 MEQ/L (3.5-5.1); SODIUM LEVEL 139 MEQ/L (136-145)
[2021-04-14] MEDS: TIOTROPIUM INHALER/CAPSULE (SPIRIVA) INH SCH (07:23)
[2021-04-14] MEDS: HumaLOG INSULIN (NovoLOG) PER UNIT SC SCH ×4 (08:29→21:00)
[2021-04-14] MEDS: FLUoxetine 20 MG CAP PO SCH (08:29)
[2021-04-14] MEDS: TRIHEXYPHENIDYL 2 MG TAB PO SCH ×3 (08:29→21:00)
[2021-04-14] MEDS: ASPIRIN 81MG ENTERIC TABLET PO SCH (08:30)
[2021-04-14] MEDS: MIDODRINE 5 MG TAB PO SCH ×3 (08:30→16:28)
[2021-04-14] MEDS: PRIMIDONE 50MG TAB PO SCH ×2 (08:30→21:00)
[2021-04-14] MEDS: PREGABALIN 50 MG CAP (LYRICA) PO SCH ×3 (08:30→22:21)
[2021-04-14] MEDS: lamoTRIgine 25MG TAB PO SCH (08:30)
[2021-04-14] MEDS: lamoTRIgine 100MG TAB PO SCH (08:30)
[2021-04-14] MEDS: GABAPENTIN 400MG CAP PO SCH ×2 (08:30→22:21)
[2021-04-14] MEDS: ATORVASTATIN 20 MG TAB PO SCH (08:30)
[2021-04-14] MEDS ORDERED: LISINOPRIL *2.5 MG* TAB PO SCH (09:00)
[2021-04-14 09:07] LABS: HEMATOCRIT 22.8 % (42.0-52.0); HEMOGLOBIN 7.6 g/dl (13.5-17.5)
[2021-04-14] MEDS ORDERED: LEVEMIR (INSULIN DETEMIR) 1 UNITS/0.01ML SC ONE ×2 (13:20→17:35)
[2021-04-14] MEDS ORDERED: HYDROCORTISONE 100 MG/2 ML VIAL (J1720 PER 1) IV SCH (13:25)
[2021-04-14] MEDS ORDERED: NS 500 ML IV ONE (13:25)
[2021-04-14] MEDS ORDERED: ENOXAPARIN 40MG/0.4ML SYRINGE (J1650 PER 10MG) SC ONE (13:45)
[2021-04-14] MEDS: HYDROCORTISONE 100 MG/2 ML VIAL (J1720 PER 1) IV SCH ×2 (14:37→20:00)
[2021-04-14] MEDS ORDERED: ISOVUE-370 76% 100ML VIAL As Ordered ONE (15:35)
[2021-04-14 19:32] LABS: CK-MB VALUE MASS 91.4 NG/ML (<3.6); MB/CK RELATIVE INDEX 6.04 (< OR =4)
[2021-04-14] MEDS: cefTRIAXone SOD 2 GM in D5W MINI-BAG PLUS 50 ML IV SCH (20:00)
[2021-04-14] MEDS ORDERED: MIDODRINE 5 MG TAB PO ONE (20:10)
[2021-04-14] MEDS: PRAZOSIN 1 MG CAP PO SCH (20:33)
[2021-04-14] MEDS: DIVALPROEX 500 MG TAB PO SCH (21:00)
[2021-04-14] MEDS ORDERED: NS 250 ML IV ONE ×2 (21:00→21:25)
[2021-04-14] MEDS: DOXYCYCLINE HYCLATE 100 MG in D5W MINI-BAG PLUS 100 ML IV SCH (21:00)
[2021-04-14 21:01] LABS: HEMATOCRIT 23.1 % (42.0-52.0); HEMOGLOBIN 7.7 g/dl (13.5-17.5)
[2021-04-15] VITALS (8 sets, daily range): BP systolic 98–120; BP diastolic 61–74
[2021-04-15] MEDS ORDERED: FUROSEMIDE 40MG/4ML VIAL (J1940) IV STA (01:48)
[2021-04-15] MEDS: HYDROCORTISONE 100 MG/2 ML VIAL (J1720 PER 1) IV SCH ×4 (02:00→20:00)
[2021-04-15 03:26] LABS: APPEARANCE, URINE CLEAR (CLEAR); BACTERIA, URINE AUTO NEGATIVE (NEGATIVE); BILIRUBIN, URINE AUTO NEGATIVE (NEGATIVE); BLOOD, URINE BLOOD NEGATIVE (NEGATIVE); COLOR, URINE YELLOW (YELLOW); GLUCOSE, URINE (UA) AUTO 3+ mg/dL (NEGATIVE); KETONE, URINE AUTO TRACE mg/dL (NEGATIVE); LEUKOCYTE ESTERASE, URINE AUTO TRACE (NEGATIVE); MUCUS, URINE SMALL (NEGATIVE); NITRITE, URINE AUTO NEGATIVE (NEGATIVE); PROTEIN, URINE AUTO 1+ mg/dL (NEGATIVE); RBC, URINE AUTO 2 /HPF (0-3); SQUAMOUS EPITHELIAL CELL UR AU 0 /HPF (0-6); WBC, URINE AUTO 4 /HPF (0-3)
[2021-04-15 05:26] LABS: HEMATOCRIT 29.4 % (42.0-52.0); MEAN CORPUSCULAR HEMOGLOBIN 29.4 pg (27.0-33.0); MEAN CORPUSCULAR HGB CONC 33.7 g/dl (32.0-36.5); MEAN CORPUSCULAR VOLUME 87.2 fl (80.0-96.0); PLATELET COUNT, AUTOMATED 222 10^3/uL (150-450); RED BLOOD COUNT 3.37 10^6/uL (4.30-6.10); WHITE BLOOD COUNT 15.7 10^3/uL (4.0-10.0)
[2021-04-15 05:40] LABS: HEMOGLOBIN 9.9 g/dl (13.5-17.5)
[2021-04-15 05:44] LABS: BLOOD UREA NITROGEN 43 MG/DL (7-18); CALCIUM LEVEL 7.9 MG/DL (8.5-10.1); CARBON DIOXIDE LEVEL 26 MEQ/L (21-32); CHLORIDE LEVEL 108 MEQ/L (98-107); CREATININE FOR GFR 0.98 MG/DL (0.70-1.30); GLOMERULAR FILTRATION RATE > 60.0 (>56); GLUCOSE, FASTING 250 MG/DL (70-100); MAGNESIUM LEVEL 2.4 MG/DL (1.8-2.4); POTASSIUM SERUM 4.1 MEQ/L (3.5-5.1); SODIUM LEVEL 141 MEQ/L (136-145)
[2021-04-15] MEDS: LACTOBACILLUS ACIDOPHILUS CAP (BACID) PO SCH ×2 (08:00→18:00)
[2021-04-15] MEDS: HumaLOG INSULIN (NovoLOG) PER UNIT SC SCH ×4 (08:43→21:53)
[2021-04-15] MEDS: DOXYCYCLINE HYCLATE 100 MG in D5W MINI-BAG PLUS 100 ML IV SCH ×2 (08:43→22:54)
[2021-04-15] MEDS: lamoTRIgine 25MG TAB PO SCH (08:44)
[2021-04-15] MEDS: ATORVASTATIN 20 MG TAB PO SCH (08:44)
[2021-04-15] MEDS: ASPIRIN 81MG ENTERIC TABLET PO SCH (08:44)
[2021-04-15] MEDS: LEVEMIR (INSULIN DETEMIR) 1 UNITS/0.01ML SC SCH ×2 (08:44→21:53)
[2021-04-15] MEDS ORDERED: HEPARIN SOD (PORCINE) 5000UNITS/ML 1ML VIAL/SYRINGE IV PRN (08:45)
[2021-04-15] MEDS ORDERED: HEPARIN SOD (PORCINE) 5000UNITS/ML 1ML VIAL/SYRINGE IV ONE (08:45)
[2021-04-15] MEDS: lamoTRIgine 100MG TAB PO SCH (08:45)
[2021-04-15] MEDS: MIDODRINE 5 MG TAB PO SCH ×3 (08:46→16:23)
[2021-04-15] MEDS ORDERED: ENOXAPARIN 40MG/0.4ML SYRINGE (J1650 PER 10MG) SC SCH (09:00)
[2021-04-15] MEDS: PREGABALIN 50 MG CAP (LYRICA) PO SCH ×3 (09:00→21:51)
[2021-04-15] MEDS: GABAPENTIN 400MG CAP PO SCH ×2 (09:00→21:51)
[2021-04-15] MEDS: FLUoxetine 20 MG CAP PO SCH (09:00)
[2021-04-15] MEDS ORDERED: LEVEMIR (INSULIN DETEMIR) 1 UNITS/0.01ML SC SCH (09:00)
[2021-04-15] MEDS: TRIHEXYPHENIDYL 2 MG TAB PO SCH ×3 (10:58→21:51)
[2021-04-15] MEDS: PRIMIDONE 50MG TAB PO SCH ×2 (10:59→21:52)
[2021-04-15] MEDS: HEPARIN DRIP 25,000 UNITS in IV 1 EA IV SCH (11:06)
[2021-04-15] MEDS: TIOTROPIUM INHALER/CAPSULE (SPIRIVA) INH SCH (11:06)
[2021-04-15] MEDS: ACETAMINOPHEN TAB 650MG DOSE (2X325MG) PO PRN (15:13)
[2021-04-15] MEDS ORDERED: traMADol 50 MG TAB PO PRN (17:10)
[2021-04-15] MEDS: cefTRIAXone SOD 2 GM in D5W MINI-BAG PLUS 50 ML IV SCH (20:00)
[2021-04-15] MEDS: DIVALPROEX 500 MG TAB PO SCH (21:52)
[2021-04-15] MEDS: PANTOPRAZOLE 40MG TAB (PROTONIX) PO SCH (21:52)
[2021-04-16] VITALS: BP 95/68
[2021-04-16] MEDS: PERCOCET 5MG/325MG TAB PO PRN ×4 (00:06→22:06)
[2021-04-16] MEDS: HYDROCORTISONE 100 MG/2 ML VIAL (J1720 PER 1) IV SCH ×3 (01:44→21:25)
[2021-04-16 04:00] VITALS: BP 98/71
[2021-04-16 04:13] LABS: HEMATOCRIT 28.3 % (42.0-52.0); HEMOGLOBIN 9.3 g/dl (13.5-17.5); MEAN CORPUSCULAR HEMOGLOBIN 29.2 pg (27.0-33.0); MEAN CORPUSCULAR HGB CONC 32.9 g/dl (32.0-36.5); MEAN CORPUSCULAR VOLUME 88.7 fl (80.0-96.0); PLATELET COUNT, AUTOMATED 223 10^3/uL (150-450); RED BLOOD COUNT 3.19 10^6/uL (4.30-6.10); WHITE BLOOD COUNT 18.7 10^3/uL (4.0-10.0)
[2021-04-16] MEDS: HEPARIN DRIP 25,000 UNITS in IV 1 EA IV SCH (05:13)
[2021-04-16 05:27] LABS: BLOOD UREA NITROGEN 40 MG/DL (7-18); CALCIUM LEVEL 7.9 MG/DL (8.5-10.1); CARBON DIOXIDE LEVEL 24 MEQ/L (21-32); CHLORIDE LEVEL 104 MEQ/L (98-107); CREATININE FOR GFR 0.98 MG/DL (0.70-1.30); GLOMERULAR FILTRATION RATE > 60.0 (>56); GLUCOSE, FASTING 224 MG/DL (70-100); MAGNESIUM LEVEL 2.2 MG/DL (1.8-2.4); POTASSIUM SERUM 4.1 MEQ/L (3.5-5.1); SODIUM LEVEL 136 MEQ/L (136-145)
[2021-04-16] MEDS: HumaLOG INSULIN (NovoLOG) PER UNIT SC SCH ×4 (07:30→21:00)
[2021-04-16] MEDS: TIOTROPIUM INHALER/CAPSULE (SPIRIVA) INH SCH (07:32)
[2021-04-16 07:54] VITALS: BP 96/61
[2021-04-16] MEDS ORDERED: CLOPIDOGREL 75 MG TAB PO SCH (09:00)
[2021-04-16] MEDS: TRIHEXYPHENIDYL 2 MG TAB PO SCH ×3 (09:00→21:59)
[2021-04-16] MEDS ORDERED: FLUoxetine 20 MG CAP PO SCH (09:00)
[2021-04-16] MEDS: DOXYCYCLINE HYCLATE 100 MG in D5W MINI-BAG PLUS 100 ML IV SCH ×2 (09:37→21:27)
[2021-04-16] MEDS: LEVEMIR (INSULIN DETEMIR) 1 UNITS/0.01ML SC SCH ×2 (09:37→21:26)
[2021-04-16] MEDS: GABAPENTIN 400MG CAP PO SCH ×2 (09:38→21:27)
[2021-04-16] MEDS: lamoTRIgine 25MG TAB PO SCH ×2 (09:38→21:55)
[2021-04-16] MEDS: PREGABALIN 50 MG CAP (LYRICA) PO SCH ×3 (09:38→21:27)
[2021-04-16] MEDS: ATORVASTATIN 20 MG TAB PO SCH (09:39)
[2021-04-16] MEDS: LACTOBACILLUS ACIDOPHILUS CAP (BACID) PO SCH ×2 (09:39→17:25)
[2021-04-16] MEDS: MIDODRINE 5 MG TAB PO SCH ×3 (09:39→17:25)
[2021-04-16] MEDS: ASPIRIN 81MG ENTERIC TABLET PO SCH (09:39)
[2021-04-16] MEDS: lamoTRIgine 100MG TAB PO SCH (09:39)
[2021-04-16 12:41] VITALS: BP 104/61
[2021-04-16] MEDS: PRIMIDONE 50MG TAB PO SCH ×2 (13:05→21:56)
[2021-04-16 16:00] VITALS: BP 95/62
[2021-04-16 20:00] VITALS: BP 100/58
[2021-04-16] MEDS ORDERED: ENOXAPARIN 40MG/0.4ML SYRINGE (J1650 PER 10MG) SC SCH (21:00)
[2021-04-16] MEDS: cefTRIAXone SOD 2 GM in D5W MINI-BAG PLUS 50 ML IV SCH (21:22)
[2021-04-16] MEDS: PANTOPRAZOLE 40MG TAB (PROTONIX) PO SCH (21:27)
[2021-04-16] MEDS: DIVALPROEX 500 MG TAB PO SCH (21:55)
[2021-04-17] VITALS: BP 107/88
[2021-04-17] MEDS ORDERED: LEVALBUTEROL 1.25 MG/0.5 ML CONCENTRATE NEB INH PRN (01:50)
[2021-04-17] MEDS ORDERED: ALBUTEROL SULFATE 2.5 MG/0.5 ML INH NEB SOLN NEB PRN (02:00)
[2021-04-17] MEDS ORDERED: methylPREDNISolone 125MG 2ML VIAL IV ONE (02:10)
[2021-04-17] MEDS ORDERED: FUROSEMIDE 100MG/10ML VIAL (J1940) As Ordered ONE (02:12)
[2021-04-17] MEDS ORDERED: FUROSEMIDE 100MG/10ML VIAL (J1940) IV ONE ×2 (02:20→03:00)
[2021-04-17 02:39] LABS: HEMATOCRIT 29.3 % (42.0-52.0); HEMOGLOBIN 9.1 g/dl (13.5-17.5); HEMOGLOBIN 9.2 g/dl (13.5-17.5); MEAN CORPUSCULAR HEMOGLOBIN 29.4 pg (27.0-33.0); MEAN CORPUSCULAR HEMOGLOBIN 29.5 pg (27.0-33.0); MEAN CORPUSCULAR HGB CONC 31.1 g/dl (32.0-36.5); MEAN CORPUSCULAR HGB CONC 31.4 g/dl (32.0-36.5); MEAN CORPUSCULAR VOLUME 93.9 fl (80.0-96.0); MEAN CORPUSCULAR VOLUME 94.5 fl (80.0-96.0); PLATELET COUNT, AUTOMATED 318 10^3/uL (150-450); RED BLOOD COUNT 3.12 10^6/uL (4.30-6.10); WHITE BLOOD COUNT 21.8 10^3/uL (4.0-10.0); WHITE BLOOD COUNT 22.2 10^3/uL (4.0-10.0)
[2021-04-17 03:00] VITALS: BP 91/68
[2021-04-17 03:00] LABS: CALCIUM LEVEL 7.7 MG/DL (8.5-10.1); CREATININE FOR GFR 1.36 MG/DL (0.70-1.30); GLOMERULAR FILTRATION RATE 57.3 (>56); MAGNESIUM LEVEL 2.7 MG/DL (1.8-2.4); POTASSIUM SERUM 4.5 MEQ/L (3.5-5.1)
[2021-04-17] MEDS ORDERED: MORPHINE 2 MG/ML 1ML VIAL (J2270) As Ordered ONE (03:10)
[2021-04-17 03:17] LABS: CK-MB VALUE MASS 12.3 NG/ML (<3.6); MB/CK RELATIVE INDEX 1.92 (< OR =4)
[2021-04-17] MEDS ORDERED: IPRATROPIUM 0.02% SOLN 0.5MG 2.5ML NEB INH SCH (04:00)
[2021-04-17] MEDS ORDERED: MORPHINE 2 MG/ML 1ML VIAL (J2270) IV ONE (04:00)
[2021-04-17] MEDS ORDERED: LEVALBUTEROL 1.25 MG/0.5 ML CONCENTRATE NEB INH SCH (04:00)
== END 2021-04-17 04:26 | disposition expired | DRG 480 ==
LOC: M ED 17:07 → M ED INP 20:54 → M MS5PR 22:45 → M PCU 04-12 23:15 → M MS5PR 04-13 20:15 → M PCU 04-14 20:00
PROVIDERS: ADMIT Internal Medicine; ATTEND Internal Medicine
PROC: 0QS636Z Reposition Right Upper Femur with Intramedullary Internal Fixation Device, Percutaneous Approach (ICD-10-PCS; principal; 2021-04-12 19:00)
PROC: 30233N1 Transfusion of Nonautologous Red Blood Cells into Peripheral Vein, Percutaneous Approach (ICD-10-PCS; 2021-04-14)
DX: S72.144A Nondisplaced intertrochanteric fracture of right femur, initial encounter for closed fracture (principal); J18.9 Pneumonia, unspecified organism; J96.01 Acute respiratory failure with hypoxia; T81.11XA Postprocedural cardiogenic shock, initial encounter; I21.3 ST elevation (STEMI) myocardial infarction of unspecified site; I50.32 Chronic diastolic (congestive) heart failure; F17.210 Nicotine dependence, cigarettes, uncomplicated; I16.0 Hypertensive urgency; E11.9 Type 2 diabetes mellitus without complications; J44.9 Chronic obstructive pulmonary disease, unspecified; Z86.73 Personal history of transient ischemic attack (TIA), and cerebral infarction without residual deficits; G20 Parkinson's disease; I11.0 Hypertensive heart disease with heart failure; F41.9 Anxiety disorder, unspecified; F32.A Depression, unspecified; R56.9 Unspecified convulsions; Z79.82 Long term (current) use of aspirin; Z79.899 Other long term (current) drug therapy; Z91.040 Latex allergy status; Z88.8 Allergy status to other drugs, medicaments and biological substances; E78.5 Hyperlipidemia, unspecified; Z89.021 Acquired absence of right finger(s); Z89.022 Acquired absence of left finger(s); Z66 Do not resuscitate; W18.30XA Fall on same level, unspecified, initial encounter